=== PATIENT | female | born 2005 | race Caucasian/White ===

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

== ENCOUNTER 2023-03-14 06:39 | Emergency (ER) | payer BC ==
[~2023-03-14] VITALS: Ht 160 cm; Wt 68.0 kg
[~2023-03-14 06:39] MED LIST changes: +IBUP-1969 PO
[2023-03-14 06:48] VITALS: BP_SYST 122
--- NOTE | 2023-03-14 06:54 | NUR ---
SORE THROAT X 5 DAYS, 8/10 THROAT PAIN
--- NOTE | 2023-03-14 07:05 | NUR ---
Patient arrived to ED 5 for c/o sore throat. She said she had cold for 6 days and then a sore throat developed 3 days ago. The cold went away but sore throat persisted. Patient has been alternating between Theraflu and Dayquil. Denies PM. at bedside to MSE patient. Will continue to monitor.
[2023-03-14] MEDS ORDERED: DECADRON 4 MG TABLET PO ONE (07:15)
[2023-03-14] MEDS ORDERED: DECADRON 4 MG TABLET ONE (07:17)
[2023-03-14] MEDS ORDERED: DEXAMETHASONE SOD PHOSPHATE 10 MG/ML VIAL PO ONE (07:30)
[2023-03-14] MEDS ORDERED: DEXAMETHASONE SOD PHOSPHATE 10 MG/ML VIAL ONE (07:31)
[2023-03-14] MEDS ORDERED: AMOX875T2 PO (07:31)
[2023-03-14] MEDS ORDERED: IBUP-1969 PO (07:31)
--- NOTE | 2023-03-14 07:43 | NUR ---
Pt medicated PO RX with applesauce; pt tolerated well.
--- NOTE | 2023-03-14 07:50 | NUR ---
ER at bedside examining patient.
--- NOTE | 2023-03-14 07:58 | NUR ---
Patient given written and verbal discharge instructions and verbalizes understanding. ER MD discussed with patient the results and treatment provided. Patient in stable condition. ID arm band removed. Rx of amoxicilllin and ibuprofen given. Patient educated on pain management and to follow up with PMD. Opportunity for questions provided and answered. Medication side effect fact sheet provided.
[2023-03-14 07:59] VITALS: BP_SYST 124
== END 2023-03-14 07:58 | disposition home or self-care (01) ==
LOC: SED 06:39
DX: J02.0 Streptococcal pharyngitis (principal); R11.0 Nausea; Z79.899 Other long term (current) drug therapy
CPT/HCPCS: 99283; 86403; 36415; 87081; J1100; J8540

== ENCOUNTER 2023-11-22 08:19 | Emergency (ER) | payer BC ==
[~2023-11-22] VITALS: Ht 160 cm; Wt 68.0 kg
[~2023-11-22 08:19] MED LIST changes: +AMOX875T2 PO
[2023-11-22 08:21] VITALS: BP_SYST 132; PULSE 97; RESP 18; TEMP 97.2; O2SAT 95
[2023-11-22] MEDS ORDERED: CLIN-142 PO (08:35)
[2023-11-22 08:48] VITALS: BP_SYST 132; PULSE 97; RESP 18; TEMP 97.2; O2SAT 95
== END 2023-11-22 08:40 | disposition home or self-care (01) ==
LOC: SED 08:19
DX: H66.91 Otitis media, unspecified, right ear (principal); R50.9 Fever, unspecified; R05.9 Cough, unspecified; Z79.899 Other long term (current) drug therapy
CPT/HCPCS: 99283

== ENCOUNTER 2024-03-15 11:31 | Emergency (ER) | payer BC ==
[~2024-03-15] VITALS: Ht 160 cm; Wt 72.6 kg
[2024-03-15 11:31] VITALS: BP_SYST 133; PULSE 77; RESP 18; TEMP 97.6; O2SAT 97
[~2024-03-15 11:31] MED LIST changes: +CLIN-142 PO
[2024-03-15] MEDS ORDERED: SULF1TAB48 PO (12:39)
== END 2024-03-15 12:44 | disposition home or self-care (01) ==
LOC: SED 11:31
DX: S90.862A Insect bite (nonvenomous), left foot, initial encounter (principal); L03.116 Cellulitis of left lower limb; Z88.1 Allergy status to other antibiotic agents; Z79.899 Other long term (current) drug therapy; Z79.2 Long term (current) use of antibiotics; W57.XXXA Bitten or stung by nonvenomous insect and other nonvenomous arthropods, initial encounter; Y93.89 Activity, other specified; Y92.89 Other specified places as the place of occurrence of the external cause; Y99.8 Other external cause status
CPT/HCPCS: 99283